=== PATIENT | female | born 1960 | race Two or more races ===

== ENCOUNTER 2017-09-30 14:33 | Outpatient (CLI) | payer OTHER, MEDICAID ==
[~2017-09-30 14:33] MED LIST: ALBU8.5H8 IH; ESTR1TAB19 PO; GUAI120015 PO; PANT-47 PO; VERA240T PO
== END 2017-09-30 23:59 ==
LOC: 64 CT 14:33
PROVIDERS: ATTEND Family Medicine
DX: M47.812 Spondylosis without myelopathy or radiculopathy, cervical region (principal); M25.78 Osteophyte, vertebrae; Z86.19 Personal history of other infectious and parasitic diseases
CPT/HCPCS: 72125

== ENCOUNTER 2017-10-09 20:43 | Emergency (ER) | payer MEDICAID, OTHER ==
[~2017-10-09] VITALS: Ht 149.9 cm; Wt 54.5 kg
[2017-10-09 20:47] VITALS: BP 134/72
[2017-10-09] MEDS ORDERED: ipratropium/albuterol 3ml nebule NEB ONE (20:55)
[2017-10-09] MEDS ORDERED: TAM75C PO (21:56)
[2017-10-09] MEDS ORDERED: BENZ-16 PO (21:56)
== END 2017-10-09 23:10 | disposition home or self-care (01) ==
LOC: ER 20:43
DX: B34.9 Viral infection, unspecified (principal); G43.909 Migraine, unspecified, not intractable, without status migrainosus; Z98.890 Other specified postprocedural states; Z88.8 Allergy status to other drugs, medicaments and biological substances
CPT/HCPCS: 94640; 94760; 99284

== ENCOUNTER 2017-10-14 19:45 | Emergency (ER) | payer MEDICAID ==
[~2017-10-14] VITALS: Ht 149.9 cm; Wt 54.5 kg
[~2017-10-14 19:45] MED LIST changes: +BENZ-16 PO; +TAM75C PO
[2017-10-14] MEDS ORDERED: metoclopramide 5 mg/ml inj IM ONE (23:40)
[2017-10-14] MEDS ORDERED: diphenhydrAMINE 50 mg/ml inj IM ONE (23:40)
[2017-10-14] MEDS ORDERED: ketorolac trometh. 30mg/ml inj. IM ONE (23:40)
[2017-10-14 23:53] VITALS: BP 139/59
== END 2017-10-14 23:57 | disposition home or self-care (01) ==
LOC: ER 19:45
DX: J06.9 Acute upper respiratory infection, unspecified (principal); G43.909 Migraine, unspecified, not intractable, without status migrainosus; Z90.49 Acquired absence of other specified parts of digestive tract; Z86.19 Personal history of other infectious and parasitic diseases; Z88.1 Allergy status to other antibiotic agents; Z88.8 Allergy status to other drugs, medicaments and biological substances; Z79.899 Other long term (current) drug therapy
CPT/HCPCS: 96372; 99284; J1200; J1885; J2765

== ENCOUNTER 2018-02-28 09:10 | Outpatient (CLI) | payer OTHER, MEDICAID ==
[~2018-02-28 09:10] MED LIST changes: -BENZ-16 PO; -TAM75C PO
== END 2018-02-28 23:59 | disposition home or self-care (01) ==
LOC: 64 CT 09:10
PROVIDERS: ATTEND Family Medicine
DX: K57.92 Diverticulitis of intestine, part unspecified, without perforation or abscess without bleeding (principal)
CPT/HCPCS: 74176

== ENCOUNTER 2018-10-17 10:17 | Emergency (ER) | payer MEDICAID ==
[~2018-10-17] VITALS: Ht 149.9 cm; Wt 54.0 kg
[~2018-10-17 10:17] MED LIST changes: +ONDA4TAB6 PO
[2018-10-17 10:32] VITALS: BP 131/72
[2018-10-17] MEDS ORDERED: dexamethasone sod phosphate 10mg/ml inj PO STA (11:00)
[2018-10-17] MEDS ORDERED: ipratropium/albuterol 3ml nebule NEB ONE (11:00)
[2018-10-17] MEDS ORDERED: ketorolac tromethamine 15mg/ml inj. IV ONE (11:05)
[2018-10-17] MEDS ORDERED: dexamethasone 4mg/ml inj IV SCH (11:05)
[2018-10-17] MEDS ORDERED: diphenhydrAMINE 50 mg/ml inj IV ONE (11:05)
[2018-10-17] MEDS ORDERED: normal saline 1000ML IV soln IVB ONE (11:05)
[2018-10-17] MEDS ORDERED: metoclopramide 5 mg/ml inj IV ONE (11:05)
--- NOTE | 2018-10-17 11:38 | NUR ---
Pt received IV Benadry and immediately began coughing immediately after injection. [place] warm sensation from chest up to throat. Denied being short of breath, O2 sats remained the same. No change in blood pressure. Lasted about 3-4 minutes and then subsided. Listed as adverse reaction after.
[2018-10-17] MEDS ORDERED: ONDA4TAB6 PO (12:36)
== END 2018-10-17 12:55 | disposition home or self-care (01) ==
LOC: ER 10:17
DX: G43.909 Migraine, unspecified, not intractable, without status migrainosus (principal); Z90.49 Acquired absence of other specified parts of digestive tract; Z98.890 Other specified postprocedural states; Z88.1 Allergy status to other antibiotic agents; Z88.8 Allergy status to other drugs, medicaments and biological substances; Z79.899 Other long term (current) drug therapy
CPT/HCPCS: 96374; 96375; 99283; J1100; J1200; J1885; J2765; J7030

== ENCOUNTER 2022-09-29 13:51 | Outpatient (CLI) | payer MEDICAID ==
[~2022-09-29 13:51] MED LIST changes: +ALBU8.5H17 IH; -ALBU8.5H8 IH; +CYCL-1 PO
== END 2022-09-29 23:59 | disposition home or self-care (01) ==
LOC: RAD 13:51
PROVIDERS: ATTEND Family Medicine
DX: M50.221 Other cervical disc displacement at C4-C5 level (principal); M50.222 Other cervical disc displacement at C5-C6 level; M50.223 Other cervical disc displacement at C6-C7 level; M25.78 Osteophyte, vertebrae; M48.02 Spinal stenosis, cervical region
CPT/HCPCS: 72141

== ENCOUNTER 2022-12-18 12:34 | Emergency (ER) | payer MEDICAID ==
[~2022-12-18] VITALS: Ht 149.9 cm; Wt 58.2 kg
[2022-12-18 13:37] LABS: BASOPHILS % (AUTO) 0.3 % (0-1); EOSINOPHILS # (AUTO) 0.1 X10'3 (0-0.9); HEMATOCRIT 42.7 % (35.0-45.0); HEMOGLOBIN 14.1 g/dl (12.0-16.0); LYMPHOCYTES # (AUTO) 1.2 X10'3 (1.1-4.8); MEAN CORPUSCULAR HEMOGLOBIN 30.2 PG (27.0-31.0); MEAN CORPUSCULAR VOLUME 91.4 FL (78-98); MEAN PLATELET VOLUME 7.7 FL (7.4-10.4); MONOCYTES # (AUTO) 0.6 X10'3 (0-0.9); NEUTROPHILS # (AUTO) 6.7 X10'3 (1.8-7.7); NEUTROPHILS % (AUTO) 77.7 % (42-75); PLATELET COUNT 320 X10'3 (140-440); RED BLOOD COUNT 4.67 X10'6 (4.20-5.60); RED CELL DISTRIBUTION WIDTH 14.2 % (11.5-14.5); WHITE BLOOD COUNT 8.6 X10'3 (4.5-11.0)
[2022-12-18 13:44] LABS: URINE HCG NEGATIVE (NEG)
[2022-12-18 13:45] LABS: CLARITY,URINE SLIGHTLY CLOUDY (Clear); COLOR,URINE YELLOW (Yellow); GLUCOSE, URINE NEGATIVE (Neg); KETONES,URINE TRACE mg/dl (Neg); LEUKOCYTE ESTERASE ,URINE NEGATIVE (Neg); NITRITES, URINE POSITIVE (Neg); OCCULT BLOOD,URINE MODERATE (Neg); PROTEIN,URINE TRACE mg/dl (Neg); UROBILINOGEN,URINE 0.2 E.U/dL (0.2-1.0)
[2022-12-18 13:51] LABS: UA COLLECTION TYPE CLN CATCH MIDSTREAM
[2022-12-18 13:53] LABS: BACTERIA,URINE 4+ /HPF (Neg); MUCUS STRANDS FEW /LPF (Neg); RBC,URINE 0-2 /HPF (0-2); SQUAMOUS EPITHELIAL CELL,UR MANY /LPF (FEW); WBC,URINE 0-4 /HPF (0-4)
[2022-12-18 13:57] LABS: ALANINE AMINOTRANSFERASE 26 U/L (12-78); ALBUMIN 3.4 G/DL (3.4-5.0); ALBUMIN/GLOBULIN RATIO 0.8 (1.1-1.5); ALKALINE PHOSPHATASE 72 IU/L (46-116); ANION GAP 9 (8-16); ASPARTATE AMINO TRANSFERASE 43 U/L (10-37); BILIRUBIN,TOTAL 0.3 MG/DL (0.1-1.0); BLOOD UREA NITROGEN 11 MG/DL (7-18); BUN/CREATININE RATIO 12.1 (6.6-38.0); CALCIUM 8.7 MG/DL (8.5-10.1); CHLORIDE 103 MMOL/L (99-107); CREATININE 0.91 MG/DL (0.40-0.90); GLUCOSE 109 MG/DL (70-104); LIPASE 165 U/L (73-393); POTASSIUM 3.2 MMOL/L (3.5-5.1); SODIUM 138 MMOL/L (135-145); TOTAL CARBON DIOXIDE 26.2 MMOL/L (24-32); TOTAL PROTEIN 7.5 G/DL (6.4-8.2); eGFR 63 ML/MIN
[2022-12-18] MEDS ORDERED: normal saline 1000ml 1,000 ML IV ONE (14:25)
[2022-12-18] MEDS ORDERED: ondansetron/PF 4mg/2ml inj IV ONE (14:25)
[2022-12-18] MEDS ORDERED: POTASSIUM BICARB 20meq eff tab 20 MEQ TABLET.EFF PO STA (15:36)
[2022-12-18] MEDS ORDERED: morphine 4 MG/ML inj SYRINge IV ONE (15:40)
[2022-12-18] MEDS ORDERED: pantoprazole 40MG/NS 100ML BAG 100 ML IV ONE (15:40)
[2022-12-18] MEDS ORDERED: amox tr/potassium clavulanate 875/125mg TAB PO ONE (15:40)
[2022-12-18] MEDS ORDERED: ketorolac trometh. 30mg/ml inj. IV ONE (16:55)
[2022-12-18 17:29] VITALS: BP 133/53
[2022-12-18] MEDS ORDERED: ONDA4TAB12 PO (17:31)
[2022-12-18] MEDS ORDERED: AMOX-117 PO (17:31)
== END 2022-12-18 18:01 | disposition home or self-care (01) ==
LOC: ER 12:34
DX: K52.9 Noninfective gastroenteritis and colitis, unspecified (principal); M79.18 Myalgia, other site; G43.909 Migraine, unspecified, not intractable, without status migrainosus; Z86.19 Personal history of other infectious and parasitic diseases; Z90.49 Acquired absence of other specified parts of digestive tract; Z98.890 Other specified postprocedural states; Z88.6 Allergy status to analgesic agent; Z88.1 Allergy status to other antibiotic agents; Z88.8 Allergy status to other drugs, medicaments and biological substances; Z79.899 Other long term (current) drug therapy
CPT/HCPCS: 36415; 80053; 81001; 81025; 83690; 85025; 93005; 96361; 96374; 96375; 99284; C9113; J1885; J2405; J7030

== ENCOUNTER 2025-02-12 11:06 | Emergency (ER) | payer MEDICAID ==
[~2025-02-12] VITALS: Ht 149.9 cm; Wt 55.5 kg
[~2025-02-12 11:06] MED LIST changes: +ONDA-243 PO
[2025-02-12 11:40] VITALS: TEMP 98
[2025-02-12 12:05] LABS: BASOPHILS % (AUTO) 0.4 % (0-1); EOSINOPHILS # (AUTO) 0.1 X10'3 (0-0.9); EOSINOPHILS % (AUTO) 1.1 % (0-6); HEMOGLOBIN 13.3 g/dl (12.0-16.0); LYMPHOCYTES # (AUTO) 2.3 X10'3 (1.1-4.8); LYMPHOCYTES % (AUTO) 20.2 % (21-51); MEAN CORPUSCULAR HEMOGLOBIN 29.9 PG (27.0-31.0); MEAN CORPUSCULAR HGB CONC 34.2 g/dL (33.0-36.5); MEAN CORPUSCULAR VOLUME 87.3 FL (78-98); MEAN PLATELET VOLUME 8.1 FL (7.4-10.4); MONOCYTES % (AUTO) 9.1 % (2-12); NEUTROPHILS # (AUTO) 7.8 X10'3 (1.8-7.7); NEUTROPHILS % (AUTO) 69.2 % (42-75); PLATELET COUNT 391 X10'3 (140-440); RED BLOOD COUNT 4.46 X10'6 (4.20-5.60); RED CELL DISTRIBUTION WIDTH 13.4 % (11.5-14.5); WHITE BLOOD COUNT 11.3 X10'3 (4.5-11.0)
--- NOTE | 2025-02-12 12:08 | Physician Documentation ---
History of Present Illness Chief Complaint: Abdominal Pain Stated Complaint: ABD PAIN Time Seen by MD: 11:58 Primary Medical Doctor: mackenzie SANDERS This is a very pleasant 64-year-old female sent in by her PCP to rule out appendicitis because she has been suffering from an abdominal pain in the right lower quadrant for the last three days. No obvious trigger provocation. The particular palliating or aggravating factors. Accompanied by nausea. No vomiting. Reports some diarrhea. Denies any chest pain or difficulty breathing. Pain is moderate to severe in its intensity. No concern for tobacco, alcohol or illicit substances use Medication Reconciliation Allergies: Coded Allergies: adhesive tape (Verified Allergy, Intermediate, EKG PATCHES = BLISTERS, 02/12/25) iodine (Unverified Allergy, Intermediate, ITCHES, 02/12/25) levofloxacin (Verified Allergy, Mild, blister to skin, 02/12/25) Iodinated Contrast Media (Verified Allergy, Unknown, 02/12/25) dexlansoprazole (Unverified Allergy, Unknown, 02/12/25) povidone-iodine (Verified Allergy, Unknown, 02/12/25) soap (Verified Allergy, Unknown, 02/12/25) Uncoded Allergies: IV BENADRYL (Adverse Reaction, Unknown, COUGHING, WARM SENSTION IN LUNGS AND THROAT, 10/17/18) Scheduled Estradiol (Estradiol), 2 TAB PO DAILY, (Reported) Guaifenesin (Mucinex), 1 TAB PO Q12H Ondansetron Hcl (Zofran), 1 TAB PO Q8H Ondansetron Hcl (Zofran), 1 TAB PO PRN Pantoprazole Sodium (PROTONIX tablet), 1 TAB PO DAILY, (Reported) Verapamil Hcl SR* (Calan SR*), 1 TAB PO BID, (Reported) Scheduled PRN Albuterol Sulfate (Proair Hfa), 2 PUFFS IH Q4H PRN for SOB or wheezing Cyclobenzaprine* (Cyclobenzaprine*), 1 TABLET PO Qhs PRN for muscle spasms ONDANSETRON ODT 4mg tablet (Ondansetron Odt), 1 TABLET PO Q6H PRN for nausea/vomiting Past Medical History Past Medical History: Headache, Migraine, Hepatitis C, UTI Past Surgical History: cholecystectomy, Alcohol Use: None Drug Use: none Lives with: Family Lives In: Home Occupation: employed Review of Systems ROS 10 point review of systems was performed and unless noted above in HPI is negative for acute process/complaint. Physical Exam Vital Signs: Temperature: 98.0, Heart Rate: 105, Respiratory Rate: 18, BP: 135/52, Pulse Oximetry: 97, Weight: 55.450 Physical Exam GENERAL: Awake, alert, oriented, GCS 15, no apparent distress, non-toxic appearing, answers questions, follows commands appropriately. HEENT: Atraumatic, normocephalic, pupils equal, extraocular muscles intact, sclerae anicteric, mucus membranes moist, oropharynx is clear, no stridor. NECK: supple, full active range of motion, trachea midline, no thyromegaly, no lymphadenopathy, no JVD. CARDIOVASCULAR: Tachycardic and regular rate/rhythm, no murmurs/gallops/rubs, Pulses are 2+ in all extremities and symmetric. Capillary refill less than 2 seconds. PULMONARY: Nonlabored, good air movement ,no respiratory distress, speaking in full sentences, clear to auscultation bilaterally, no wheezing, no ronchi, no rales, no accessory muscle use. GASTROINTESTINAL: Soft, right lower quadrant tenderness to palpation without guarding but with some rebound, non-distended, normal active bowel sounds, no organomegaly, no pulsatile masses, no CVA tenderness. NEUROLOGIC: Lucid with normal mental status. Normal facial symmetry. Moves all extremities symmetrically and with purpose. No truncal ataxia. Speech is fluid without evidence of dysarthria or aphasia, no focal deficits appreciated. MUSCULOSKELETAL: There is full range of motion of all extremities. There is no joint pain or joint swelling or joint erythema. There is no muscle pain or tenderness or swelling. EXTREMITIES: warm, well-perfused, no cyanosis, no clubbing, no edema, no acute deformities. Skin: warm, dry, no rashes or lesions, no jaundice, no petechiae orpurpura. No ecchymosis. PSYCHIATRIC: Normal affect, normal insight, normal concentration. Focused exam: [] Progress Results/Orders Results/Orders Orders - ENZO CARUSO DO Urinalysis, Cult If Indicated (02/12/25 11:43) Hcg, Ur Ql (02/12/25 11:43) Cbc/Diff (02/12/25 11:43) BMP (02/12/25 11:43) Lipase (02/12/25 11:43) CMP (02/12/25 11:43) ESR (02/12/25 12:01) C-Reactive Protein (02/12/25 12:01) Culture Blood (02/12/25 12:01) Saline Lock (02/12/25 12:01) Normal Saline (02/12/25 12:05) Ct Abdomen Pelvis (02/12/25 12:01) Hs Troponin I W Calculations (02/12/25 12:01) Lacticsepsis (02/12/25 12:01) Morphine 4mg/Ml Inj. (Morphine Inj.) (02/12/25 12:05) Ondansetron Inj. (Zofran 4mg/2ml Vial) (02/12/25 12:05) Vital Signs 02/12/25 11:40 Temp 98.0 Pulse 105 Resp 18 B/P (MAP) 135/52 Pulse Ox 97 Laboratory Tests Test 02/12/25 11:55 CBC Comment Chemistry Comments Medical Decision Making Findings Facility Status: ED Holds, [facility] process The plan was discussed with the patient, who demonstrates clear understanding of the plan and is in agreement with the plan unless otherwise noted in the chart. All questions have been answered, all concerns were addressed unless otherwise documented. I was available throughout their ED stay for frequent reassessment and questions. Differential Diagnoses (considered and possible or likely): [Differential diagnosis considered includes acute appendicitis, acute cholecystitis, pancreatitis, gastritis, PUD, diverticulitis, mesenteric ischemia, abdominal aortic aneurysm, bowel obstruction, enteritis, colitis, fecal impaction, volvulus, IBS, inflammatory bowel disease, specific food intolerance, peritonitis, perforated viscous, malignancy, UTI, abscess, and abdominal pain NOS. Pelvic source of pain was also considered including endometritis, dysmenorrhea, ovarian cyst, ovarian torsion, PID, TOA, cervicitis, vaginitis, or uterine fibroid. History, physical exam, and workup exclude many of the more serious causes listed above. ] ??Differential Diagnoses (considered and unlikely, not requiring evaluation currently): [Aortic/great vessels dissection was considered but it is unlikely based on absence of ripping, tearing, migratory chest pain, absence of syncope or focal neurologic deficits, physical examination indicating equal and symmetric pulses.] MDM Data Please see HPI for the following: Independent Historians and external Records Review. Historian: [Patient] Independent Historians: ?[Record review] Medication Management: [Reviewed medication list] Social History and determinants: [Reviewed] Please see the body of the note for the following: Any independent interpretations of ECG, imaging studies. All vitals signs/haemodynamics, ordered tests were independently reviewed and interpreted by myself. Nursing triage complaint and vitals reviewed, additional nursing notes were reviewed as available and I agree unless otherwise noted or documented in contradiction in the chart Vital Signs: Independently reviewed Labs: Independently interpreted Imaging: Independently interpreted Old Medical Records: Independently reviewed, see HPI for relevant summary and information Pulse Oximetry: [97%] interpreted as [normal on room air] by me [Electric Motor Control Assembler: Tachycardic Rate, Regular rhythm, no ectopy, sinus tachycardia. reviewed and interpreted by me] Additionally notably showing: [Tachycardia had resolved. Laboratory workup notable for mild elevation of CRP. CT shows nonspecific findings which may relate to colitis. Importantly, there is no secondary signs of appendicitis ] Tests considered but not ordered include: [Not applicable] Social Determinants of Health Impact: Patient was evaluated in [facility], [facility] [place] to healthcare due to below par ratio of patient to medical providers. [] Comorbid Conditions Impacting Present Evaluation and Care/Treatment: [Allergy to contrast prevented us from getting optimal imaging] Management Discussions with other Healthcare Providers: [None] Treatment and Disposition Medication Management (Given or considered): []. See EMR for details Consideration for Hospitalization/Escalation/Deescalation of Care: Admission for observation has been considered, [however the patient is able to tolerate p.o., their symptoms are controlled, they are able to rely on oral medications, and their chief complaint/diagnosis can be managed on outpatient basis.] ?ED Course:?[No clinical deterioration] ?Shared decision making:?[Patient is hemodynamically stable for discharge home with follow with their primary care provider. [ ] Specific and cautious return precautions provided and discussed with full understanding. Any incidental findings were also discussed and follow up recommendations given. [] All questions answered. Patient/family were able to verbalize back return precautions. Patient/family agree to plan. Copies of imaging and laboratory studies were provided.] Code status:?FULL Please see the full Electronic Medical Record for full details of nursing documentation, medications list, other records of complete past medical history and conditions, vital signs, laboratory studies, and any radiologic study interpretations by radiologists. Portions of this note were completed using [employer] dictation software and as a result there may exist minor errors in spelling. I have reviewed elements of past family and social history and agree as included in note. Departure Disposition: HOME / SELF CARE / HOMELESS Impression: Primary Impression: Right lower quadrant abdominal pain Additional Impression: Diarrhea Condition: Improved Discharge Instructions: Abdominal Pain (Nonspecific) Referrals: NO PRIMARY CARE PROVIDER (PCP) Education Educated: Patient, Family Educated regarding: diagnosis, treatment, prognosis, need for follow up Signature Scribe Signature: No scribe Attestation: This note accurately reflects clinical decisions, work performed by myself, DO SHADY Carvajal NICHOLAS M DO February 12, 2025 12:08
[2025-02-12] MEDS: ondansetron/PF 4mg/2ml inj IV ONE (12:19)
[2025-02-12] MEDS: normal saline 1000ML IV soln IVB ONE (12:20)
[2025-02-12] MEDS: morphine 4 MG/ML inj SYRINge IV ONE (12:20)
[2025-02-12 12:21] LABS: ALANINE AMINOTRANSFERASE 32 U/L (12-78); ALBUMIN 3.4 G/DL (3.4-5.0); ALBUMIN/GLOBULIN RATIO 0.9 (1.1-1.5); ALKALINE PHOSPHATASE 78 IU/L (46-116); ANION GAP 13 (8-16); ASPARTATE AMINO TRANSFERASE 25 U/L (10-37); BILIRUBIN,TOTAL 0.3 MG/DL (0.1-1.0); BLOOD UREA NITROGEN 14 MG/DL (7-18); BUN/CREATININE RATIO 12.8 (10.0-20.0); CALCIUM 8.3 MG/DL (8.5-10.1); CHLORIDE 103 MMOL/L (99-107); CREATININE 1.09 MG/DL (0.40-0.90); GLUCOSE 100 MG/DL (70-104); LIPASE 27 U/L (16-77); SODIUM 139 MMOL/L (135-145); TOTAL CARBON DIOXIDE 22.6 MMOL/L (24-32); TOTAL PROTEIN 7.3 G/DL (6.4-8.2); eCRCL 36 ML/MIN; eGFR 51 ML/MIN
[2025-02-12 12:25] LABS: POTASSIUM 2.8 MMOL/L (3.5-5.1)
[2025-02-12 12:52] LABS: C-REACTIVE PROTEIN 15.05 MG/DL (0.0-0.5)
--- NOTE | 2025-02-12 13:24 | RADIOLOGY REPORT ---
CT ABDOMEN AND PELVIS WITHOUT CONTRAST CLINICAL HISTORY: RLQ pain TECHNIQUE: Multiple contiguous axial images of the abdomen and pelvis without intravenous contrast. T he images were reformatted degenerate coronal and sagittal reconstructions. All CT scans at this medical facility are performed using dose modulation techniques as appropriate t o a performed exam including the following:Automated exposure control was utilized; adjustment of the MA and/or KV according to patient size; and use of iterative reconstruction technique. Radiation Dose Information: CT Dose: CTDI volume is 10 mGy. Dose-length product is 47 mGy*cm Comparison: None FINDINGS: Evaluation of the abdomen and pelvis is limited without intravenous contrast. The right kidney is positioned in the right renal pelvis. The left kidney is positioned in the left renal fossa. There is no evidence of nephrolithiasis or hydronephrosis. There is diffuse fatty infiltration of the liver. The gallbladder is surgically absent. The panc reas, adrenal glands, and spleen appear within normal limits. There are nonspecific scattered mesenteric lymph nodes in the right abdomen measuring up to 9 cm in t he short axis. There is no free fluid or free air. The stomach grossly appears unremarkable. The small bowel loops demonstrate normal caliber and distr ibution. The ascending and transverse colon are collapsed with mild surrounding fat stranding which M ay relate to colitis. The appendix is not seen in the right lower quadrant abdomen. There are no seco ndary signs of acute appendicitis. The abdominal aorta and IVC appear within normal limits. The bladder appears unremarkable for the degree of distention. The uterus is surgically absent.. The re is no gross evidence of a pelvic mass. There is no free fluid collection. Lung bases are clear. There is no acute osseous abnormality. IMPRESSION: 1. The ascending and transverse colon are collapsed with mild surrounding fat stranding which May rel ate to colitis. Clinical correlation is recommended. 2. Nonspecific scattered mesenteric lymph nodes in the right abdomen measuring up to 9 mm in the shor t axis. These may represent reactive nodes. 3. Hepatic steatosis. 4. Right pelvic kidney. HS:Y
[2025-02-12] MEDS: POTASSIUM BICARB 20meq eff tab 20 MEQ TABLET.EFF PO ONE (14:01)
[2025-02-12 15:50] VITALS: BP 158/74; PULSE 96; RESP 16; O2SAT 97
[2025-02-12 16:21] LABS: BILIRUBIN,URINE NEGATIVE (Neg); CLARITY,URINE SLIGHTLY CLOUDY (Clear); COLOR,URINE YELLOW (Yellow); GLUCOSE, URINE NEGATIVE (Neg); KETONES,URINE 40 mg/dl (Neg); LEUKOCYTE ESTERASE ,URINE NEGATIVE (Neg); NITRITES, URINE POSITIVE (Neg); OCCULT BLOOD,URINE MODERATE (Neg); PROTEIN,URINE NEGATIVE (Neg); UROBILINOGEN,URINE 0.2 E.U/dL (0.2-1.0)
[2025-02-12 16:26] LABS: UA COLLECTION TYPE CLN CATCH MIDSTREAM
[2025-02-12 16:32] LABS: BACTERIA,URINE 4+ /HPF (Neg); MUCUS STRANDS FEW /LPF (Neg); RENAL CELLS, URINE FEW /HPF; SQUAMOUS EPITHELIAL CELL,UR FEW /LPF (FEW)
[2025-02-12 16:40] LABS: URINE HCG NEGATIVE (NEG)
== END 2025-02-12 16:18 | disposition home or self-care (01) ==
LOC: ER 11:07
DX: R10.31 Right lower quadrant pain (principal); R19.7 Diarrhea, unspecified; G43.909 Migraine, unspecified, not intractable, without status migrainosus; Z91.041 Radiographic dye allergy status; Z88.8 Allergy status to other drugs, medicaments and biological substances; Z88.1 Allergy status to other antibiotic agents; Z90.49 Acquired absence of other specified parts of digestive tract; Z79.899 Other long term (current) drug therapy; Z98.890 Other specified postprocedural states
CPT/HCPCS: 36415; 74176; 80053; 81001; 81025; 82948; 83605; 83690; 84484; 85025; 85651; 86140; 87040; 87088; 96361; 96374; 96375; 99285; J2270; J2405; J7030; 87077; 87186

== ENCOUNTER 2025-03-30 10:35 | Inpatient (IN) | payer MEDICAID ==
[~2025-03-30] VITALS: Ht 149.9 cm; Wt 55.0 kg
[2025-03-30 11:33] LABS: BILIRUBIN,URINE NEGATIVE (Neg); CLARITY,URINE CLEAR (Clear); COLOR,URINE YELLOW (Yellow); GLUCOSE, URINE NEGATIVE (Neg); KETONES,URINE NEGATIVE (Neg); LEUKOCYTE ESTERASE ,URINE NEGATIVE (Neg); NITRITES, URINE NEGATIVE (Neg); OCCULT BLOOD,URINE SMALL (Neg); PROTEIN,URINE NEGATIVE (Neg); UROBILINOGEN,URINE 0.2 E.U/dL (0.2-1.0)
[2025-03-30 11:40] LABS: BASOPHILS % (AUTO) 0.4 % (0-1); EOSINOPHILS # (AUTO) 0.2 X10'3 (0-0.9); EOSINOPHILS % (AUTO) 1.3 % (0-6); HEMOGLOBIN 11.8 g/dl (12.0-16.0); LYMPHOCYTES # (AUTO) 3.1 X10'3 (1.1-4.8); LYMPHOCYTES % (AUTO) 26.4 % (21-51); MEAN CORPUSCULAR HEMOGLOBIN 29.7 PG (27.0-31.0); MEAN CORPUSCULAR HGB CONC 33.6 g/dL (33.0-36.5); MEAN CORPUSCULAR VOLUME 88.2 FL (78-98); MEAN PLATELET VOLUME 7.9 FL (7.4-10.4); MONOCYTES # (AUTO) 0.9 X10'3 (0-0.9); NEUTROPHILS # (AUTO) 7.5 X10'3 (1.8-7.7); NEUTROPHILS % (AUTO) 63.9 % (42-75); PLATELET COUNT 400 X10'3 (140-440); RED BLOOD COUNT 3.97 X10'6 (4.20-5.60); WHITE BLOOD COUNT 11.7 X10'3 (4.5-11.0)
[2025-03-30 11:45] LABS: UA COLLECTION TYPE CLN CATCH MIDSTREAM
[2025-03-30 11:46] LABS: BACTERIA,URINE FEW /HPF (Neg); RBC,URINE 0-2 /HPF (0-2); WBC,URINE NONE SEEN /HPF (0-4)
[2025-03-30 11:47] LABS: MUCUS STRANDS NONE SEEN /LPF (Neg); SQUAMOUS EPITHELIAL CELL,UR MANY /LPF (FEW)
[2025-03-30 11:51] LABS: ALANINE AMINOTRANSFERASE 38 U/L (12-78); ALBUMIN 3.6 G/DL (3.4-5.0); ALBUMIN/GLOBULIN RATIO 0.9 (1.1-1.5); ALKALINE PHOSPHATASE 66 IU/L (46-116); ANION GAP 12 (8-16); ASPARTATE AMINO TRANSFERASE 26 U/L (10-37); BILIRUBIN,TOTAL 0.3 MG/DL (0.1-1.0); BLOOD UREA NITROGEN 12 MG/DL (7-18); BUN/CREATININE RATIO 13.5 (10.0-20.0); CALCIUM 8.5 MG/DL (8.5-10.1); CHLORIDE 104 MMOL/L (99-107); CREATININE 0.89 MG/DL (0.40-0.90); GLUCOSE 125 MG/DL (70-104); LIPASE 46 U/L (16-77); POTASSIUM 3.5 MMOL/L (3.5-5.1); SODIUM 141 MMOL/L (135-145); TOTAL CARBON DIOXIDE 24.9 MMOL/L (24-32); TOTAL PROTEIN 7.4 G/DL (6.4-8.2); eCRCL 44 ML/MIN; eGFR 64 ML/MIN
[2025-03-30] MEDS ORDERED: iohexol 300mg/ml 100ml inj. ONE (12:10)
--- NOTE | 2025-03-30 14:49 | RADIOLOGY REPORT ---
CT CT ABDOMEN PELVIS INDICATION: abdominal pain and post colonoscopy rectal bleeding EXAM DATE: 03/30/2025 01:41 PM COMPARISON: CT CT ABDOMEN PELVIS W/ IV CONTRAST on DOS: 02/12/25 RADIATION DOSE: CTDIvol: 9 mGy, DLP: 505 mGy*cm PROCEDURE: Helical CT images were obtained of the abdomen and pelvis without IV contrast Sagittal and coronal reconstructions are provided. ORAL CONTRAST: None. ADDITIONAL IMAGES / REFORMATS: None All C T scans at this medical facility are performed using dose modulation techniques as appropriate to a p erformed exam including the following: Automated exposure control was utilized; adjustment of the MA and/or KV according to patient size; and use of iterative reconstruction technique. FINDINGS: LUNG BASE: Normal. LIVER: Hepatic steatosis. GALLBLADDER AND BILIARY TREE: Cholecystectomy clips. No intra- or extrahepatic biliary ductal dilatio n. PANCREAS: Normal. SPLEEN: Normal. BOWEL: There is mild colonic diverticulosis. The appendix is not well visualized. ADRENALS: Normal. KIDNEYS AND URETER: Right pelvic kidney. BLADDER: Normal. REPRODUCTIVE ORGANS: Uterus is absent. There is a 4 cm cystic lesion in the right lower quadrant of the abdomen which could be ovarian in nature and similar to prior. LYMPH NODES:No lymphadenopathy. PERITONEUM: No ascites or free air. No other fluid collection. VESSELS: Scattered atherosclerotic calcifications are noted. RETROPERITONEUM: Normal. ABDOMINAL WALL: Normal. BONES: Scattered osseous degenerative changes are noted. IMPRESSION: No acute intraabdominal abnormality. Mild colonic diverticulosis. 4 cm cystic lesion in the right lower quadrant of the abdomen which could be ovarian in nature and si milar to prior. Right pelvic kidney.
[2025-03-30] MEDS: piperacillin/tazo 3.375gm/50ml 50 ML IV SCH (15:17)
[2025-03-30] MEDS: normal saline 1000ml 1,000 ML IV ONE (15:17)
--- NOTE | 2025-03-30 16:47 | Physician Documentation ---
History of Present Illness ~ Chief Complaint: Abdominal Pain Stated Complaint: ABD PAIN Time Seen by MD: 11:10 Primary Medical Doctor: mackenzie Mode of Arrival: Ambulatory HPI 64-year-old female presenting with rectal bleeding. Patient had a colonoscopy done several days ago. She states that she felt fine when she went home. Over the past couple days she has noticed that her stool has been bloody. She has noticed ruthy red blood coming from her rectum. In addition she describes some abdominal pain which comes and goes. States that she feels slightly weak but denies any nausea, vomiting or any other associated symptoms. Medication Reconciliation Allergies: Coded Allergies: adhesive tape (Verified Allergy, Intermediate, EKG PATCHES = BLISTERS, 02/12/25) iodine (Unverified Allergy, Intermediate, ITCHES, 02/12/25) levofloxacin (Verified Allergy, Mild, blister to skin, 02/12/25) Iodinated Contrast Media (Verified Allergy, Unknown, 02/12/25) dexlansoprazole (Unverified Allergy, Unknown, 02/12/25) povidone-iodine (Verified Allergy, Unknown, 02/12/25) soap (Verified Allergy, Unknown, 02/12/25) Uncoded Allergies: IV BENADRYL (Adverse Reaction, Unknown, COUGHING, WARM SENSTION IN LUNGS AND THROAT, 10/17/18) Scheduled Estradiol (Estradiol), 2 TAB PO DAILY, (Reported) Guaifenesin (Mucinex), 1 TAB PO Q12H Ondansetron Hcl (Zofran), 1 TAB PO Q8H Ondansetron Hcl (Zofran), 1 TAB PO PRN Pantoprazole Sodium (PROTONIX tablet), 1 TAB PO DAILY, (Reported) Verapamil Hcl SR* (Calan SR*), 1 TAB PO BID, (Reported) Scheduled PRN Albuterol Sulfate (Proair Hfa), 2 PUFFS IH Q4H PRN for SOB or wheezing Cyclobenzaprine* (Cyclobenzaprine*), 1 TABLET PO Qhs PRN for muscle spasms ONDANSETRON ODT 4mg tablet (Ondansetron Odt), 1 TABLET PO Q6H PRN for nausea/vomiting Past Medical History Past Medical History: Headache, Migraine, Hepatitis C, UTI Past Surgical History: cholecystectomy, Alcohol Use: None Drug Use: none Lives with: Family Lives In: Home Occupation: employed Review of Systems All Other Systems at this time: Reviewed and Negative Physical Exam Vital Signs: Heart Rate: 87, Respiratory Rate: 15, BP: 148/61, Pulse Oximetry: 98, Weight: 55.000 Physical Exam I have reviewed the triage vitals. CONST: Well developed and well nourished. In no acute distress HENT: Head Atraumatic EYES: Pupils are equal, round and reactive to light. Normal conjunctiva NECK: Normal range of motion. Supple. CARDIO: Normal rate and regular rhythm. No murmurs, rubs, or gallops. S1, S2. PULM/CHEST: No respiratory distress. Lungs clear to auscultation. No wheeze ABD: Slight tenderness to palpation over the right lower quadrant. Nondistended. Bowel sounds normal. No guarding. Rectal: There is a external hemorrhoid present, there is some bright red blood noted around the rectum. : Exam deferred MSK: No edema. No deformity. NEURO: Alert and oriented to person, place and time. Moving all extremities SKIN: Warm and dry. PSYCH: Normal mood and affect. Good eye contact. Progress Results/Orders Results/Orders Orders - DANIEL CALHOUN MD Culture Blood (03/30/25 11:07) Monitor (03/30/25 11:07) Saline Lock (03/30/25 11:07) Ct Abdomen Pelvis (03/30/25 11:56) Piperacillin/Tazo 3.375gm/50ml (Zosyn 3. (03/30/25 15:00) Page Hospitalist (03/30/25 16:27) Fill Out Med Reconciliation (03/30/25 16:27) Page Hospitalist (03/30/25 16:43) Fill Out Med Reconciliation (03/30/25 16:43) Completed Orders - DANIEL CALHOUN MD Cbc/Diff (03/30/25 11:07) BMP (03/30/25 11:07) Lipase (03/30/25 11:07) CMP (03/30/25 11:07) Procalcitonin (03/30/25 11:07) Lacticsepsis (03/30/25 11:07) Hs Troponin I W Calculations (03/30/25 11:21) Ua W/Microscopic, Cult If Ind (03/30/25 11:23) Ct Abdomen Pelvis (03/30/25 11:56) Iohexol 300mg/Ml 100ml Inj. (Omnipaque-3 (03/30/25 12:10) Lactic,2hr (03/30/25 13:05) Occult Bld Stool (03/30/25 15:02) Normal Saline 1000ml (Sodium Chloride 10 (03/30/25 15:05) LA (03/30/25 16:48) Medications Received in ER Medications (Trade) Dose Ordered Sig/Maria Guadalupe Route PRN Reason Start Time Stop Time Status Last Admin Dose Admin Piperacillin/ Tazobactam/ Dextrose 50 ml @ 12.5 mls/hr Q8H IV 03/30/25 15:00 03/30/25 15:17 12.5 MLS/HR Sodium Chloride 1,000 ml @ 1,000 mls/hr ONCE ONCE IV 03/30/25 15:05 03/30/25 16:04 DC 03/30/25 15:17 1,000 MLS/HR Vital Signs 03/30/25 03/30/25 03/30/25 03/30/25 11:01 11:45 11:54 14:16 Pulse 97 82 89 Resp 18 15 12 B/P (MAP) 157/74 146/62 (90) 133/56 (81) Pulse Ox 95 98 97 03/30/25 15:23 Pulse 87 Resp 15 B/P (MAP) 148/61 (90) Pulse Ox 98 Laboratory Tests Test 03/30/25 11:23 03/30/25 11:25 03/30/25 11:26 03/30/25 14:32 Urine Specimen Description Cln catch midstream Urine Color Yellow Urine Clarity Clear Urine pH 6.0 Urine Specific [place] <=1.005 Urine Protein Negative Urine Glucose (UA) Negative Urine Ketones Negative Urine Occult Blood Small Urine Nitrite Negative Urine Bilirubin Negative Urine Urobilinogen 0.2 Urine Leukocyte Esterase Negative Urine RBC 0-2 Urine WBC None seen Urine Squamous Epithelial Cells Many Urine Bacteria Few Urine Mucus None seen Urine Culture Indicated Not ind Volume Urine Centrifuged 10 ml Urine Comment Troponin I High Sensitivity 4 White Blood Count 11.7 H Red Blood Count 3.97 L Hemoglobin 11.8 L Hematocrit 35.0 Mean Corpuscular Volume 88.2 Mean Corpuscular Hemoglobin 29.7 Mean Corpuscular Hemoglobin Concent 33.6 Red Cell Distribution Width 14.0 Platelet Count 400 Mean Platelet Volume 7.9 Neutrophils (%) (Auto) 63.9 Lymphocytes (%) (Auto) 26.4 Monocytes (%) (Auto) 8.0 Eosinophils (%) (Auto) 1.3 Basophils (%) (Auto) 0.4 Neutrophils # (Auto) 7.5 Lymphocytes # (Auto) 3.1 Monocytes # (Auto) 0.9 Eosinophils # (Auto) 0.2 Basophils # (Auto) 0.0 CBC Comment Sodium Level 141 Potassium Level 3.5 Chloride Level 104 Carbon Dioxide Level 24.9 Anion Gap 12 Blood Urea Nitrogen 12 Creatinine 0.89 Estimated GFR/1.73 m2 64 BUN/Creatinine Ratio 13.5 Glucose Level 125 H Lactic Acid Level 2.9 H 2.4 H Calcium Level 8.5 Total Bilirubin 0.3 Aspartate Amino Transf (AST/SGOT) 26 Alanine Aminotransferase (ALT/SGPT) 38 Alkaline Phosphatase 66 Total Protein 7.4 Albumin 3.6 Globulin 3.8 Albumin/Globulin Ratio 0.9 L Lipase 46 Procalcitonin < 0.05 Chemistry Comments Test 03/30/25 16:45 03/30/25 17:20 Stool Occult Blood Positive H Lactic Acid Level 1.3 Microbiology Date/Time Source Procedure Growth Status 03/30/25 11:33 Blood Arm Right Blood Culture - Preliminary NEGATIVE (LESS THAN 24 HOURS) Resulted EKG/XRAY/CT/US/VASC/MRI EKG : Additional Comment EKG as interpreted by me with normal sinus rhythm at a rate of 78 beats per lianna te, no ST changes, normal axis CT : Impression CT CT ABDOMEN PELVIS INDICATION: abdominal pain and post colonoscopy rectal bleeding EXAM DATE: 03/30/2025 01:41 PM COMPARISON: CT CT ABDOMEN PELVIS W/ IV CONTRAST on DOS: 02/12/25 RADIATION DOSE: CTDIvol: 9 mGy, DLP: 505 mGy*cm PROCEDURE: Helical CT images were obtained of the abdomen and pelvis without IV contrast Sagittal and coronal reconstructions are provided. ORAL CONTRAST: None. ADDITIONAL IMAGES / REFORMATS: None All CT scans at this medical facility are performed using dose modulation techniques as appropriate to a performed exam including the following: Automated exposure control was utilized; adjustment of the MA and/or KV according to patient size; and use of iterative reconstruction technique. FINDINGS: LUNG BASE: Normal. LIVER: Hepatic steatosis. GALLBLADDER AND BILIARY TREE: Cholecystectomy clips. No intra- or extrahepatic biliary ductal dilation. PANCREAS: Normal. SPLEEN: Normal. BOWEL: There is mild colonic diverticulosis. The appendix is not well visualized. ADRENALS: Normal. KIDNEYS AND URETER: Right pelvic kidney. BLADDER: Normal. REPRODUCTIVE ORGANS: Uterus is absent. There is a 4 cm cystic lesion in the right lower quadrant of the abdomen which could be ovarian in nature and similar to prior. LYMPH NODES:No lymphadenopathy. PERITONEUM: No ascites or free air. No other fluid collection. VESSELS: Scattered atherosclerotic calcifications are noted. RETROPERITONEUM: Normal. ABDOMINAL WALL: Normal. BONES: Scattered osseous degenerative changes are noted. IMPRESSION: No acute intraabdominal abnormality. Mild colonic diverticulosis. 4 cm cystic lesion in the right lower quadrant of the abdomen which could be ovarian in nature and similar to prior. Right pelvic kidney. Medical Decision Making Additional Comments 64-year-old female presenting with bright red blood per rectum bleeding status post colonoscopy done one week ago. On exam she does have a external hemorrhoid but I do not believe that this is the source of the bleeding. All lab workup your hemoglobin is 11.8. This is down from 13.3 about a month and a half ago. Patient had a CT of the abdomen which was negative for any acute pathology at this time. Lab workup also indicates an elevated lactic acid level of 2.9. With a repeat of 2.4. Patient was given a L of IV normal saline as well as IV Zosyn. I did consult with Dr. Herrera of GI who will come and see the patient. Patient admitted to the hospitalist service. Departure Disposition: ADMITTED INPATIENT Admitted to Inpatient Unit: to hospitalist Admission Level of Care: Med/Surg with Tele Impression: Primary Impression: Lower GI bleed Additional Impression: Elevated lactic acid level Condition: Guarded Referrals: NO PRIMARY CARE PROVIDER (PCP) Signature Scribe Signature: 1 Attestation: 1 DANIEL CALHOUN MD Mar 30, 2025 16:47
[2025-03-30 17:36] LABS: OCCULT BLOOD STOOL POSITIVE (Neg)
[2025-03-30] MEDS ORDERED: HYDROcodone/acetaminophen 5mg/325mg tablet PO PRN (17:45)
[2025-03-30] MEDS ORDERED: mag hydrox/Alum hydrox/simeth 30ml oral suspension PO PRN (17:45)
[2025-03-30] MEDS ORDERED: potassium Cl 20 mEq SR tablet PO PRN (17:45)
[2025-03-30] MEDS ORDERED: potassium Cl 40MEQ/1/2NS 520ml 520 ML IV PRN (17:45)
[2025-03-30] MEDS ORDERED: magnesium sulf-water 2g/50mL 50 ML IV PRN (17:45)
[2025-03-30] MEDS ORDERED: magnesium Cl slow-release 64mg tablet PO PRN (17:45)
[2025-03-30] MEDS ORDERED: HYDROcodone/acetaminophen 10/325mg tab PO PRN (17:45)
[2025-03-30] MEDS ORDERED: magnesium hydroxide 30ml (MOM) UD suspension PO PRN (17:45)
[2025-03-30] MEDS ORDERED: morphine 2 MG/ML inj. syringe IV PRN (17:45)
[2025-03-30] MEDS ORDERED: magnesium sulf-water 4G/100mL 100 ML IV PRN (17:45)
[2025-03-30] MEDS ORDERED: dextrose 5%-1/2 normal saline 1,000 ML IV SCH (17:45)
[2025-03-30] MEDS ORDERED: ondansetron/PF 4mg/2ml inj IV PRN (17:45)
--- NOTE | 2025-03-30 17:49 | HISTORY AND PHYSICAL ---
History & Physical Providers to CC ~ History of Present Illness Reason for Admit\Complaint: Bright red blood per rectum History of Present Illness History of present illness patient is a pleasant 64-year-old female who is bilingual. Patient was in her usual state of health about four days ago had a colonoscopy done with Dr. Ram the next day after that she was fine but then started having bright red blood about 3-4 times per day for the last three days became concerned started also having some abdominal super pelvic discomfort finally came to the ER. Patient's Hemoccult cards positive CT of the abdomen and pelvis in the ER is negative. Patient has not been able to get a hold of the GI doctor to inform him of what has been transpiring. She also states she has had an EGD done about two years ago. Allergies: Coded Allergies: adhesive tape (Verified Allergy, Intermediate, EKG PATCHES = BLISTERS, 02/12/25) iodine (Unverified Allergy, Intermediate, ITCHES, 02/12/25) levofloxacin (Verified Allergy, Mild, blister to skin, 02/12/25) Iodinated Contrast Media (Verified Allergy, Unknown, 02/12/25) dexlansoprazole (Unverified Allergy, Unknown, 02/12/25) povidone-iodine (Verified Allergy, Unknown, 02/12/25) soap (Verified Allergy, Unknown, 02/12/25) Uncoded Allergies: IV BENADRYL (Adverse Reaction, Unknown, COUGHING, WARM SENSTION IN LUNGS AND THROAT, 10/17/18) Home Medications Home Medications Active Ondansetron Odt (Ondansetron HCl) 4 Mg Tab.rapdis 1 Tablet PO Q6H PRN Cyclobenzaprine* (Cyclobenzaprine HCl) 10 Mg Tablet 1 Tablet PO QHS PRN Zofran (Ondansetron Hcl) 4 Mg Tablet 1 Tab PO PRN 10 Days Zofran (Ondansetron Hcl) 4 Mg Tablet 1 Tab PO Q8H 10 Days Proair Hfa (Albuterol Sulfate) 1 Puff Inh 2 Puffs IH Q4H PRN Mucinex (Guaifenesin) 1,200 Mg Tbbp.12hr 1 Tab PO Q12H 10 Days Reported PROTONIX tablet (Pantoprazole Sodium) 40 Mg Tablet.dr 1 Tab PO DAILY 30 Days Calan SR* (Verapamil HCl) 240 Mg Tablet.er 1 Tab PO BID 30 Days Estradiol 1 Mg Tablet 2 Tab PO DAILY 30 Days Past Medical History Past Medical History Past medical history is nothing of significance Past surgical history she has had four C sections a right shoulder left inguinal gallbladder and a C-spine surgery Allergies are are to IV Benadryl IV contrast dye adhesive tapes Dexilant iodine levofloxacin iodine iodine soap Social history denies any tobacco EtOH or IV drug abuse is lives with family Family history nothing of significance Review of systems negative for all 10 systems reviewed Exam Vitals: Vital Signs Date Time Temp Pulse Resp B/P (MAP) Pulse Ox O2 Delivery O2 Flow Rate FiO2 03/30/25 15:23 87 15 148/61 (90) 98 General: Patient is alert and oriented x4 in no acute distress lying down comfortably speaking in full sentences HEENT normocephalic nontraumatic head PERRLA. EOMI. CVS first and second heart sounds are regular rate rhythm no murmurs gallops or rubs Respiratory system is clear to auscultate bilaterally no rales rhonchi crackles or wheezing Abdomen is soft bowel sounds are positive nontender nondistended Extremities no clubbing cyanosis or edema Neurological exam no focal deficits Skin is intact Diagnostic Data Last Recorded Lab Results: 03/30/25 1126 03/30/25 1126 Additional Plan Assessment and plan Bright red blood per rectum Etiology unclear Case discussed in details with Dr. Velez He agrees to see the patient Anemia mild continue to monitor CBC q.8 Transfuse p.r.n. Abdominal pain CT is negative monitor DVT prophylaxis with the SCDs Patient is a full code Family at bedside all questions answered to the best of my ability Date of Service: Mar 31, 2025 Billing Provider: BENJAMIN POWELL MD Common Visit Codes: [id number] INP/OBS CARE (HIGH) BENJAMIN POWELL MD Mar 30, 2025 17:49
[2025-03-30] MEDS ORDERED: dicyclomine 10 MG capsule PO PRN (17:55)
[2025-03-30] MEDS: hydrocortisone acetate 25mg rectal suppository RC SCH (20:00)
[2025-03-30] MEDS: docusate sod 100mg capsule PO SCH (20:00)
[2025-03-30] MEDS: K and/or MAG REPLACEMENT MC SCH (20:00)
[2025-03-30] MEDS ORDERED: MONT-40 PO (23:46)
[2025-03-30] MEDS ORDERED: NORT25CA PO (23:46)
[2025-03-30 23:50] VITALS: BP 105/69; PULSE 94; RESP 16; TEMP 97.6; O2SAT 98
[2025-03-31] VITALS (7 sets, daily range): BP systolic 121–167; BP diastolic 44–70; PULSE 81–96; RESP 14–20; TEMP 96.4–98.7; O2SAT 94–99
[2025-03-31] MEDS: piperacillin/tazo 3.375gm/50ml 50 ML IV ONE (00:24)
[2025-03-31] MEDS: normal saline 1000ml 1,000 ML IV SCH (02:14)
[2025-03-31 07:11] LABS: MAGNESIUM 1.9 MG/DL (1.5-2.4)
[2025-03-31 07:24] LABS: POTASSIUM 2.9 MMOL/L (3.5-5.1)
[2025-03-31] MEDS: pantoprazole 40mg Tablet.DR PO SCH (07:57)
[2025-03-31] MEDS: potassium Cl 20 mEq SR tablet PO PRN (07:59)
--- NOTE | 2025-03-31 09:06 | PROGRESS NOTE ---
Daily Progress Note Providers to CC ~ Antibiotic Timeout Antibiotic Ordered?: No Subjective Chief complaint I am very hungry please give me something to eat I have not had any bowel movements today so no more bright red blood per rectum so far Review of systems negative for all 10 systems reviewed except she is developing an allergic reaction to the tele monitor patches Objective Vital Signs Date Time Temp Pulse Resp B/P (MAP) Pulse Ox O2 Delivery O2 Flow Rate FiO2 03/31/25 02:00 98.7 96 15 130/50 (76) 98 Room Air 0.0 Result Diagram: 03/30/25 1126 03/31/25 0612 CVS first and second heart sounds are regular rate rhythm no murmurs gallops or rubs Respiratory system is clear to auscultate bilaterally no rales rhonchi crackles or wheezing Abdomen is soft bowel sounds are positive nontender nondistended Extremities no clubbing cyanosis or edema Problem\Assessment\Plan Assessment and plan Bright red blood per rectum Etiology unclear Pending GI consult He agrees to see the patient I am going to start her on a regular diet And DC tele Anemia mild continue to monitor CBC q.8 Transfuse p.r.n. Abdominal pain CT is negative monitor DVT prophylaxis with the SCDs Patient is a full code If stable possible DC home in a.m. Date of Service: Mar 31, 2025 Billing Provider: BENJAMIN POWELL MD Common Visit Codes: [id number] INP/OBS CARE(HIGH) BENJAMIN POWELL MD Mar 31, 2025 09:06
[2025-03-31] MEDS: dexamethasone 4mg/ml inj IV ONE (23:24)
[2025-04-01 00:08] LABS: BASOPHILS % (AUTO) 0.3 % (0-1); EOSINOPHILS # (AUTO) 0.2 X10'3 (0-0.9); EOSINOPHILS % (AUTO) 3.2 % (0-6); HEMATOCRIT 36.7 % (35.0-45.0); HEMOGLOBIN 12.5 g/dl (12.0-16.0); LYMPHOCYTES # (AUTO) 2.8 X10'3 (1.1-4.8); LYMPHOCYTES % (AUTO) 38.4 % (21-51); MEAN CORPUSCULAR HGB CONC 33.9 g/dL (33.0-36.5); MEAN CORPUSCULAR VOLUME 88.6 FL (78-98); MEAN PLATELET VOLUME 8.2 FL (7.4-10.4); MONOCYTES # (AUTO) 0.8 X10'3 (0-0.9); MONOCYTES % (AUTO) 10.4 % (2-12); NEUTROPHILS # (AUTO) 3.5 X10'3 (1.8-7.7); NEUTROPHILS % (AUTO) 47.7 % (42-75); PLATELET COUNT 371 X10'3 (140-440); RED BLOOD COUNT 4.15 X10'6 (4.20-5.60); RED CELL DISTRIBUTION WIDTH 14.3 % (11.5-14.5); WHITE BLOOD COUNT 7.3 X10'3 (4.5-11.0)
[2025-04-01 00:23] LABS: ALANINE AMINOTRANSFERASE 43 U/L (12-78); ALBUMIN 3.5 G/DL (3.4-5.0); ALBUMIN/GLOBULIN RATIO 0.9 (1.1-1.5); ALKALINE PHOSPHATASE 63 IU/L (46-116); ANION GAP 7 (8-16); ASPARTATE AMINO TRANSFERASE 29 U/L (10-37); BILIRUBIN,TOTAL 0.4 MG/DL (0.1-1.0); BLOOD UREA NITROGEN 12 MG/DL (7-18); BUN/CREATININE RATIO 13.5 (10.0-20.0); CALCIUM 8.8 MG/DL (8.5-10.1); CHLORIDE 107 MMOL/L (99-107); CREATININE 0.89 MG/DL (0.40-0.90); GLUCOSE 110 MG/DL (70-104); POTASSIUM 4.3 MMOL/L (3.5-5.1); SODIUM 139 MMOL/L (135-145); TOTAL CARBON DIOXIDE 25.1 MMOL/L (24-32); TOTAL PROTEIN 7.4 G/DL (6.4-8.2); eCRCL 44 ML/MIN; eGFR 64 ML/MIN
[2025-04-01 03:31] VITALS: BP 142/66; PULSE 88; RESP 14; TEMP 96.3; O2SAT 97
[2025-04-01 06:00] VITALS: BP 133/64; PULSE 95; RESP 21; TEMP 97.3; O2SAT 97
[2025-04-01 07:01] LABS: POTASSIUM 4.7 MMOL/L (3.5-5.1)
[2025-04-01 08:00] VITALS: RESP 21; O2SAT 95
[2025-04-01] MEDS: acetaminophen 325mg tablet PO PRN (08:29)
[2025-04-01 11:00] VITALS: BP 141/65; PULSE 99; RESP 13; TEMP 98.3; O2SAT 97
== END 2025-04-01 14:44 | disposition home or self-care (01) | DRG 253 ==
LOC: ER 10:35 → ED HOLD 17:48 → PCU 3S 23:53
PROVIDERS: ADMIT Internal Medicine; ATTEND Internal Medicine
PROC: BW211ZZ Computerized Tomography (CT Scan) of Abdomen and Pelvis using Low Osmolar Contrast (ICD-10-PCS; principal; 2025-03-30)
DX: K92.2 Gastrointestinal hemorrhage, unspecified (principal); B19.20 Unspecified viral hepatitis C without hepatic coma; D64.9 Anemia, unspecified; G43.909 Migraine, unspecified, not intractable, without status migrainosus; Z88.1 Allergy status to other antibiotic agents; Z91.041 Radiographic dye allergy status; Z88.8 Allergy status to other drugs, medicaments and biological substances; Z90.49 Acquired absence of other specified parts of digestive tract
CPT/HCPCS: 36415; 74176; 80053; 81001; 82272; 83605; 83690; 83735; 84132; 84145; 84484; 85025; 87040; 87081; 96360; 99285; G0378; J1100; J2543; J7030; J7999; Q9967